=== PATIENT | male | born 1955 | race Caucasian/White ===

== ENCOUNTER 2016-06-17 03:55 | Emergency (ER) | payer BC ==
[2016-06-17] MEDS ORDERED: HYDROCODON-ACE1 EA16 PO (04:11)
[2016-06-17] MEDS ORDERED: ZPACK (04:11)
[2016-06-17] MEDS ORDERED: MOTRIN IB200 M1 PO (04:12)
[2016-06-17] MEDS ORDERED: ZOFRAN4 M2 PO (05:43)
[2016-06-17] MEDS ORDERED: NORCO 5-325 TA1 EACH PO (05:43)
[2016-06-18] MEDS ORDERED: ZOFRAN ODT4 MG PO (05:06)
== END 2016-06-17 06:04 ==
LOC: EDMED 03:55
PROC: 3E023BZ Introduction of Anesthetic Agent into Muscle, Percutaneous Approach (ICD-10-PCS; principal; 2016-06-17)
DX: K08.89 Other specified disorders of teeth and supporting structures (principal); R51 Headache; Z88.0 Allergy status to penicillin
CPT/HCPCS: J1885

== ENCOUNTER 2016-06-18 03:27 | Emergency (ER) | payer BC ==
[~2016-06-18 03:27] MED LIST: HYDROCODON-ACE1 EA16 PO; MOTRIN IB200 M1 PO; NORCO 5-325 TA1 EACH PO; ZOFRAN4 M2 PO; ZPACK
[2016-06-18] MEDS ORDERED: ZOFRAN ODT4 MG PO (05:06)
== END 2016-06-18 05:17 ==
LOC: EDMED 03:27
DX: K08.89 Other specified disorders of teeth and supporting structures (principal); R11.0 Nausea; Z88.0 Allergy status to penicillin
CPT/HCPCS: J1885